=== PATIENT | female | born 1965 | race Hispanic/Latino ===

== ENCOUNTER 2018-03-15 16:59 | Emergency (ER) | payer BC ==
[~2018-03-15] VITALS: Ht 165.1 cm; Wt 72.7 kg
[2018-03-15] MEDS ORDERED: FLEXERIL PO (18:54)
[2018-03-15] MEDS ORDERED: MEDDOSEPAK PO (18:54)
[2018-03-15 19:16] VITALS: BP 138/68
== END 2018-03-15 19:16 | disposition home or self-care (01) | DRG 556 ==
LOC: ED 16:59
DX: M62.838 Other muscle spasm (principal); M54.2 Cervicalgia

== ENCOUNTER 2021-09-09 08:42 | Day surgery (SDC) | payer SELFPAY ==
[~2021-09-09] VITALS: Ht 152.4 cm; Wt 68.5 kg
[~2021-09-09 08:42] MED LIST: ENALAPRIL2.5 MG PO; FLEXERIL PO; MEDDOSEPAK PO
[2021-09-09 12:02] VITALS: BP 115/75
== END 2021-09-09 12:09 | disposition home or self-care (01) | DRG 392 ==
LOC: ENDO 08:42 → ORM 11:45 → ENDO 12:09
PROVIDERS: ATTEND Surgery
DX: R10.9 Unspecified abdominal pain (principal); K92.1 Melena; R19.7 Diarrhea, unspecified; K29.70 Gastritis, unspecified, without bleeding

== ENCOUNTER → 2023-05-20 | Emergency (ER) | payer BC ==
[2023-05-20] VITALS (10 sets, daily range): BP systolic 101–122; BP diastolic 58–72
[~2023-05-20] VITALS: Ht 152.4 cm; Wt 69.0 kg
[~2023-05-20] MED LIST changes: +NAPROXEN500 MG PO
[2023-05-20 07:59] LABS: BASO% 0.2 % (0-3); EOS% 0.2 % (0-8); HEMATOCRIT 42.5 % (37.0-47.0); IMMATURE GRANULOCYTES 0.2 % (0.0-5.0); LYMPH% 8.9 % (15-41); MEAN CELL VOLUME 97.5 fL CALC (80.0-100.0); MEAN CORPUSCULAR HGB 32.1 pG CALC (26.0-32.0); MEAN CORPUSCULAR HGB CONC 32.9 g/dL CAL (32.0-36.0); MONO% 4.9 % (2-13); NEUT# 11.02 thou/uL (2.00-7.15); NEUT% 85.6 % (42-76); RED BLOOD COUNT 4.36 mill/uL (4.20-5.60); RED CELL DISTRI WIDTH 12.7 % (11.5-15.5)
[2023-05-20 08:14] LABS: CPK 55 u/l (30-135)
[2023-05-20 08:15] LABS: ALBUMIN 4.7 g/dL (3.2-5.0); ALKALINE PHOSPHATASE 60 u/l (38-126); BUN 19 mg/dL (7-17); BUN/CREATININE RATIO 29 (12-20 (CALC)); CHLORIDE 104 mmol/l (95-108); CREATININE 0.6 mg/dL (0.5-1.0); GFR FOR AFR.AMER. > 60 ML/MIN (>=60 (CALC)); GFR OTHER RACES > 60 ML/MIN (>=60 (CALC)); POTASSIUM 4.3 mmol/l (3.5-5.1); SGOT/AST 34 u/l (14-36); SODIUM 138 mmol/l (137-146)
[2023-05-20 08:19] LABS: ANION GAP 16 (6-22 (CALC)); BILIRUBIN, TOTAL 0.6 mg/dL (0.02-1.3); CARBON DIOXIDE 22 mmol/l (22-30)
[2023-05-20 08:32] LABS: URINE BILIRUBIN - DIPSTICK Negative (NEGATIVE); URINE GLUCOSE - DIPSTICK Negative (NEGATIVE); URINE KETONE Negative (NEGATIVE); URINE LEUK ESTERASE Negative (NEGATIVE); URINE NITRITE - DIPSTICK Negative (Negative); URINE PH 7.5 (4.5-8.0); URINE PROTEIN - DIPSTICK Negative (NEG-TRACE); URINE SPECIFIC GRAVITY 1.015; URINE UROBILINOGEN - DIPSTICK 0.2 E.U./dL (0.2)
[2023-05-20 08:35] LABS: URINE BLOOD DIPSTICK Trace (NEGATIVE); URINE COLOR Yellow
== END | disposition home or self-care (01) | DRG 103 ==
LOC: ED 07:02
PROVIDERS: Family Medicine
DX: R51.9 Headache, unspecified (principal); M79.10 Myalgia, unspecified site; R50.9 Fever, unspecified; R11.0 Nausea; T50.995A Adverse effect of other drugs, medicaments and biological substances, initial encounter; M81.0 Age-related osteoporosis without current pathological fracture; Z20.822 Contact with and (suspected) exposure to COVID-19